=== PATIENT | female | born 1985 | race Caucasian/White ===

== ENCOUNTER 2017-05-26 21:28 | Inpatient (IN) | payer OTHER ==
[~2017-05-26] VITALS: Ht 162.6 cm; Wt 120.5 kg
[2017-05-26 21:46] VITALS: BP 144/85
[2017-05-26 22:25] VITALS: BP 147/99
[2017-05-26 22:42] LABS: BASOPHIL COUNT 0.1 K/uL (0-0.1); EOSINOPHIL (%) 0.5 % (0-5); EOSINOPHIL COUNT 0.1 K/uL (0-0.3); HEMATOCRIT 36.9 % (36.0-46.0); IMMATURE GRANULOCYTE (%) 0.7 % (0.0-0.7); IMMATURE GRANULOCYTE COUNT 0.1 K/uL; INSTRUMENT ABS NEUTROPHIL CT 17.4 K/uL; LYMPHOCYTE COUNT 2.7 K/uL (1.0-2.8); MCH 27.2 PG (29.0-34.0); MCHC 33.1 G/DL (30.0-36.0); MCV 82.4 FL (83-99); MEAN PLAT.VOLUME 11.4 uM^3 (9.5-12.4); MONOCYTE (%) 4.3 % (3-12); MONOCYTE COUNT 0.9 K/uL (0-0.8); NEUTROPHIL (%) 81.6 % (45-76); NEUTROPHIL COUNT 17.4 K/uL (1.8-6.4); PLATELET COUNT 272 K/uL (156-360); RBC DIS.WIDTH-CV 15.2 % (11.8-14.6); RBC DIS.WIDTH-SD 45.5 % (39-53); RED BLOOD COUNT 4.48 M/uL (3.80-5.20); WHITE BLOOD COUNT 21.3 K/uL (4.1-10.2)
[2017-05-26 22:53] LABS: CHLORIDE 107 mEq/L (99-109); POTASSIUM 4.3 mEq/L (3.7-5.4); SODIUM 142 mEq/L (136-147)
[2017-05-26 22:55] LABS: GLUCOSE 90 mg/dL (70-99)
[2017-05-26 22:57] LABS: ANION GAP 13 MEQ/L (2-14); TOTAL BILIRUBIN 0.2 mg/dL (0.0-1.0)
[2017-05-26 22:59] LABS: ALKALINE PHOSPHATASE 180 IU/L (3-129); GFR ESTIMATE (CALCULATED) > 59 mL/min/
[2017-05-26 23:00] LABS: UREA NITROGEN (BUN) 9 mg/dL (9-23)
[2017-05-26 23:02] LABS: URIC ACID 5.2 mg/dL (3.1-9.2)
[2017-05-26 23:53] VITALS: BP 136/73
[2017-05-27] VITALS (30 sets, daily range): BP systolic 107–173; BP diastolic 54–89
[2017-05-27] MEDS ORDERED: IBUPROFEN800 MG PO (13:03)
[2017-05-28 07:37] VITALS: BP 139/82
[2017-05-28 14:30] VITALS: BP 146/85
[2017-05-28 23:17] VITALS: BP 130/78
[2017-05-29 07:58] VITALS: BP 131/76
== END 2017-05-29 14:02 | disposition home or self-care (01) | DRG 775 ==
LOC: LDRP-OP 21:28 → 2WEST 21:39
PROVIDERS: Obstetrics & Gynecology Gynecology
PROC: 3E0S3BZ Introduction of Anesthetic Agent into Epidural Space, Percutaneous Approach (ICD-10-PCS; 2017-05-26)
PROC: 0KQM0ZZ Repair Perineum Muscle, Open Approach (ICD-10-PCS; principal; 2017-05-27)
PROC: 10E0XZZ Delivery of Products of Conception, External Approach (ICD-10-PCS; principal; 2017-05-27)
PROC: 10907ZC Drainage of Amniotic Fluid, Therapeutic from Products of Conception, Via Natural or Artificial Opening (ICD-10-PCS; 2017-05-27)
DX: O13.4 Gestational [pregnancy-induced] hypertension without significant proteinuria, complicating childbirth (principal); Z68.42 Body mass index [BMI] 45.0-49.9, adult; O77.0 Labor and delivery complicated by meconium in amniotic fluid; O70.1 Second degree perineal laceration during delivery; O76 Abnormality in fetal heart rate and rhythm complicating labor and delivery; O99.334 Smoking (tobacco) complicating childbirth; F17.210 Nicotine dependence, cigarettes, uncomplicated; O99.214 Obesity complicating childbirth; E66.01 Morbid (severe) obesity due to excess calories; Z37.0 Single live birth; Z3A.39 39 weeks gestation of pregnancy; J45.909 Unspecified asthma, uncomplicated; O99.52 Diseases of the respiratory system complicating childbirth
CPT/HCPCS: 80053; 84550; 85025; 86900; 86901; C1755; G0378; J3010; J7120